=== PATIENT | female | born 1975 | race Caucasian/White ===

== ENCOUNTER → 2017-06-21 | Outpatient (CLI) | payer BC ==
[~2017-06-21] MED LIST: IBUP200T49 PO; LABE100T3 PO; MV-M1TAB16 PO; PREN1TAB27 PO
== END ==
LOC: CFH 08:03
PROVIDERS: ATTEND Obstetrics & Gynecology
DX: Z12.31 Encounter for screening mammogram for malignant neoplasm of breast (principal)
CPT/HCPCS: 77067

== ENCOUNTER 2018-05-25 05:56 | Day surgery (SDC) | payer BC ==
[~2018-05-25] VITALS: Ht 160 cm; Wt 80.0 kg
[~2018-05-25 05:56] MED LIST changes: -LABE100T3 PO; +LABE100T6 PO
[2018-05-25] MEDS ORDERED: BUPIVACAINE/PF 0.25% ONE (06:37)
[2018-05-25] MEDS ORDERED: SILVER NITRATE STICK TP ONE (06:38)
[2018-05-25] MEDS ORDERED: EPINEPHRINE 1 MG/ML, 1ML ONE (06:38)
[2018-05-25] MEDS ORDERED: METHYLERGONOVINE 0.2 MG/ML IM ONE (06:38)
[2018-05-25] MEDS ORDERED: OXYTOCIN 10 UNITS/ML, 1ML ONE (06:38)
[2018-05-25] MEDS ORDERED: MISOPROSTOL 200 MCG TABLET ONE (06:39)
[2018-05-25 06:51] VITALS: BP 138/84
[2018-05-25] MEDS ORDERED: LABE100T6 PO (06:51)
[2018-05-25] MEDS ORDERED: LACTATED RINGERS 1,000 ML IV SCH (06:58)
[2018-05-25 07:05] LABS: BASOPHILS # (AUTO) 0.07 x10^3/uL (0-0.1); BASOPHILS % (AUTO) 1 % (0-1); EOSINOPHILS # (AUTO) 0.18 x10^3/uL (0-0.4); EOSINOPHILS % (AUTO) 2 % (1-7); LYMPHOCYTES # (AUTO) 1.29 x10^3/uL (1-3.4); LYMPHOCYTES % (AUTO) 18 % (22-44); MD NO; MEAN CORPUSCULAR HEMOGLOBIN 30.1 pg (27.0-34.8); MEAN CORPUSCULAR HGB CONC 34.1 g/dL (32.4-35.8); MEAN CORPUSCULAR VOLUME 88.3 fL (80-100); MEAN PLATELET VOLUME 7.8 fL (7.4-10.4); MONOCYTES % (AUTO) 5 % (2-9); NEUTROPHILS # (AUTO) 5.43 x10^3/uL (1.8-6.8); NEUTROPHILS % (AUTO) 74 % (42-75); PLATELET COUNT 243 x10^3/uL (130-400); RED BLOOD COUNT 4.51 x10^6/uL (3.82-5.3); RED CELL DISTRIBUTION WIDTH 13.2 % (9.6-15.2)
[2018-05-25] MEDS ORDERED: FENTANYL PF 250 MCG/5ML ONE ×2 (07:08→08:23)
[2018-05-25] MEDS ORDERED: MIDAZOLAM 1 MG/ML, 2ML ONE ×2 (07:08→08:23)
[2018-05-25] MEDS ORDERED: PROPOFOL 10 MG/ML, 20ML ONE ×3 (07:09→08:23)
[2018-05-25] MEDS ORDERED: ONDANSETRON 2MG/ML, 2ML ONE (07:10)
[2018-05-25] MEDS ORDERED: CEFAZOLIN 1,000 MG ONE ×4 (07:10→08:24)
[2018-05-25] MEDS ORDERED: DEXAMETHASONE 4 MG/ML, 1ML ONE ×2 (07:10)
[2018-05-25] MEDS ORDERED: SODIUM CHLORIDE 0.9% PF 10ML ONE ×2 (07:10→08:24)
[2018-05-25] MEDS ORDERED: MEPERIDINE/PF 25MG/0.5ML IVPush PRN (07:30)
[2018-05-25] MEDS ORDERED: HALOPERIDOL 5 MG/ML IV PRN (07:30)
[2018-05-25] MEDS ORDERED: LABETALOL 5MG/ML, 20ML IV PRN (07:30)
[2018-05-25] MEDS ORDERED: MORPHINE SULFATE 4 MG/ML, 1ML IVPush PRN (07:30)
[2018-05-25] MEDS ORDERED: FENTANYL PF 100 MCG/2ML IV PRN (07:30)
[2018-05-25] MEDS ORDERED: ACETAMINOPHEN 325 MG TABLET PO PRN (07:30)
[2018-05-25] MEDS ORDERED: OXYcodone 5 MG/5 ML ORAL.SOL UDC PO PRN (07:30)
[2018-05-25] MEDS ORDERED: PROMETHAZINE 25 MG SUPP PR PRN (07:30)
[2018-05-25] MEDS ORDERED: ONDANSETRON 2MG/ML, 2ML IV PRN (07:30)
[2018-05-25] MEDS ORDERED: PROMETHAZINE 25 MG/ML, 1ML IV PRN (07:30)
[2018-05-25] MEDS ORDERED: PROMETHAZINE 12.5 MG SUPP PR PRN (07:30)
[2018-05-25] MEDS ORDERED: HYDROmorphone 2 MG/ML, 1ML IVPush PRN (07:30)
[2018-05-25] MEDS ORDERED: ONDANSETRON ODT 8 MG PO PRN (07:30)
[2018-05-25] MEDS ORDERED: hydrALAzine 20 MG/ML, 1ML IV PRN (07:30)
[2018-05-25] MEDS ORDERED: PROMETHAZINE 25 MG/ML, 1ML IM PRN ×2 (07:30)
[2018-05-25] MEDS ORDERED: KETOROLAC 30 MG/1 ML ONE (07:46)
[2018-05-25] MEDS ORDERED: ROCURONIUM 10MG/ML,5ML ONE (09:02)
== END 2018-05-25 10:15 | disposition home or self-care (01) ==
LOC: OUT 05:56
PROVIDERS: ATTEND Obstetrics & Gynecology
DX: O02.1 Missed abortion (principal); Z3A.01 Less than 8 weeks gestation of pregnancy; I10 Essential (primary) hypertension
CPT/HCPCS: 36415; 59820; 85025; 86850; 86900; 88305; J0171; J0690; J1100; J1885; J2250; J2405; J2590; J2704; J3010; J3490; J7120; J2210